=== PATIENT | female | born 1935 | race Two or more races ===

== ENCOUNTER 2020-10-25 08:04 | Inpatient (IN) | payer OTHER ==
[2020-10-25] MEDS ORDERED: ACETAMINOPHEN 1000 MG/100 ML VIAL (NON FORMULARY) IVPB ONE (09:02)
[2020-10-25] MEDS ORDERED: ACETAMINOPHEN INJECTION 100 ML IVPB ONE (09:12)
[2020-10-25] MEDS ORDERED: LACTATED RINGERS SOLUTION 1000 ML INFUS.BAG IV ONE (09:15)
[2020-10-25] MEDS ORDERED: PIPERACILLIN/TAZOB 4.5 GM 4.5 GM in DEXTROSE 5%-WATER 100 ML IVPB ONE (09:23)
[2020-10-25] MEDS ORDERED: VANCOMYCIN 1 GM in D5W (PRE-DOCKED) 1,000 MG/250 ML IVPB ONE (09:24)
[2020-10-25 09:35] LABS: BASO % 0.3 % (0-2.0); EOS % 3.1 % (0-4.5); HEMATOCRIT 26.4 % (32.4-45.2); HEMOGLOBIN 8.6 GM/dL (10.7-15.3); LYMPH % 40.7 % (8-40); MCH 27.5 pg (25.7-33.7); MCHC 32.8 g/dl (32.0-36.0); MEAN PLT VOLUME 8.5 fl (7.5-11.1); MONO % 5.7 % (3.8-10.2); NEUT % 50.2 % (42.8-82.8); PLATELET COUNT 285 K/MM3 (134-434); RBC 3.14 M/mm3 (3.60-5.2); RDW 17.6 % (11.6-15.6); WHITE BLOOD COUNT 7.3 K/mm3 (4.0-10.0)
[2020-10-25 09:38] LABS: INR 0.99 (0.83-1.09)
[2020-10-25] MEDS ORDERED: PIPERACILLIN/TAZOB 4.5 GM 4.5 GM/100 ML BAG IVPB ONE ×2 (09:38→16:26)
[2020-10-25 09:40] LABS: ACTIVATED PTT 25.3 SECONDS (25.2-36.5)
[2020-10-25 09:45] LABS: EPI CELLS >36 /uL (0-25.1); HYALINE CASTS 1 /uL (0-3.1); URINE APPEARANCE CLEAR; URINE BACTERIA 195 /uL (0-1359); URINE BILIRUBIN NEGATIVE (NEGATIVE); URINE COLOR YELLOW; URINE GLUCOSE (UA) NEGATIVE (NEGATIVE); URINE KETONE NEGATIVE (NEGATIVE); URINE LEUK ESTERASE 1+ (NEGATIVE); URINE NITRITE NEGATIVE (NEGATIVE); URINE PROTEIN NEGATIVE (NEGATIVE); URINE RBC 8 /uL (0-23.9); URINE WBC 58 /uL (0-25.8)
[2020-10-25 09:53] LABS: POTASSIUM 5.3 mmol/L (3.5-5.1)
[2020-10-25 09:54] LABS: CALCIUM 8.7 mg/dL (8.5-10.1)
[2020-10-25 09:55] LABS: ALBUMIN 2.3 g/dl (3.4-5.0); BLOOD UREA NITROGEN 29.6 mg/dL (7-18)
[2020-10-25 09:58] LABS: BILIRUBIN,DIRECT 0.1 mg/dL (0.0-0.2); CREATININE 0.6 mg/dL (0.55-1.3)
[2020-10-25 09:59] LABS: BILIRUBIN,TOTAL 1.1 mg/dL (0.2-1)
[2020-10-25 10:00] LABS: TOT PROT 7.3 g/dl (6.4-8.2)
[2020-10-25] MEDS ORDERED: VANCOMYCIN 1 GRAM (PRE-DOCKED) 1,000 MG/250 ML BAG IVPB ONE (10:39)
[2020-10-25] MEDS: PIPERACILLIN/TAZOB 4.5 GM 4.5 GM in DEXTROSE 5%-WATER 100 ML IVPB SCH ×2 (16:30→22:54)
[2020-10-25] MEDS ORDERED: DEXTROSE 5%-WATER 100 ML IVPB ONE (22:43)
[2020-10-25] MEDS ORDERED: PIPERACILLIN/TAZOBACTAM 4.5 GM VIAL IVPB ONE (22:43)
[2020-10-25] MEDS: ATORVASTATIN CA 20 MG TABLET (FP) GT SCH (22:56)
[2020-10-26] MEDS: ASCORBIC ACID 500 MG/5 ML UNIT DOSE CUP GT SCH ×3 (01:21→23:27)
[2020-10-26] MEDS: CHLORHEXIDINE GLUCONATE 0.12% 15ML CUP MM SCH ×3 (01:21→23:14)
[2020-10-26] MEDS ORDERED: DEXTROSE 5%-WATER 100 ML IVPB ONE ×2 (02:49→08:27)
[2020-10-26] MEDS ORDERED: PIPERACILLIN/TAZOBACTAM 4.5 GM VIAL IVPB ONE ×2 (02:49→08:27)
[2020-10-26] MEDS: PIPERACILLIN/TAZOB 4.5 GM 4.5 GM in DEXTROSE 5%-WATER 100 ML IVPB SCH ×3 (03:17→17:58)
[2020-10-26 08:23] LABS: POTASSIUM 3.8 mmol/L (3.5-5.1)
[2020-10-26 08:24] LABS: HEMOGLOBIN 8.3 GM/dL (10.7-15.3); MCH 27.8 pg (25.7-33.7); MCHC 32.9 g/dl (32.0-36.0); MEAN CELL VOLUME 84.3 fl (80-96); MEAN PLT VOLUME 8.3 fl (7.5-11.1); PLATELET COUNT 240 K/MM3 (134-434); RBC 2.97 M/mm3 (3.60-5.2); RDW 17.6 % (11.6-15.6); WHITE BLOOD COUNT 6.2 K/mm3 (4.0-10.0)
[2020-10-26 08:29] LABS: ALBUMIN 2.1 g/dl (3.4-5.0); CALCIUM 8.2 mg/dL (8.5-10.1); MAGNESIUM 1.9 mg/dL (1.8-2.4)
[2020-10-26 08:32] LABS: CREATININE 0.7 mg/dL (0.55-1.3); TOT PROT 6.4 g/dl (6.4-8.2)
[2020-10-26 08:38] LABS: INR 1.07 (0.83-1.09); PROTHROMBIN TIME (PATIENT) 13.1 SEC (9.7-13.0)
[2020-10-26 08:39] LABS: ACTIVATED PTT 25.7 SECONDS (25.2-36.5)
[2020-10-26] MEDS ORDERED: PT OWN MED DRAWER 7, Y5N ONE ×2 (09:22→22:57)
[2020-10-26] MEDS: FAMOTIDINE 20 MG TABLET PEG SCH (09:27)
[2020-10-26] MEDS: amLODIPine BESYLATE 5 MG TABLET (FP) GT SCH (09:27)
[2020-10-26] MEDS ORDERED: [UNRECOGNIZED DRUG - MIXTURE] TP SCH (10:00)
[2020-10-26] MEDS ORDERED: PIPERACILLIN/TAZOB 3.375 GM 3.375 GM in DEXTROSE 5%-WATER - 50 ML IVPB ONE (11:08)
[2020-10-26] MEDS ORDERED: cefTRIAXone SODIUM 1 GM VIAL ONE (12:57)
[2020-10-26] MEDS ORDERED: DEXTROSE 5%-WATER - 50 ML IVPB ONE (12:58)
[2020-10-26] MEDS: INSULIN SLIDING SCALE (NOVOLOG) 1 VIAL SQ SCH ×3 (13:01→23:11)
[2020-10-26] MEDS: MULTIVIT-MINERALS ORAL LIQUID GT SCH (13:02)
[2020-10-26] MEDS: DEXAMETHASONE SOD PHOSPHATE 4 MG/1 ML VIAL IVPUSH SCH (13:02)
[2020-10-26] MEDS: ENOXAPARIN NA (PORCINE) 60 MG/0.6 ML DISP.SYRIN SQ SCH ×2 (13:03→23:12)
[2020-10-26] MEDS: CEFTRIAXONE 1 GM in DEXTROSE 5%-WATER - 50 ML IVPB SCH (13:03)
[2020-10-26] MEDS ORDERED: REMDESIVIR 200 MG in SODIUM CHLORIDE 210 ML IVPB ONE (17:00)
[2020-10-26] MEDS: ATORVASTATIN CA 20 MG TABLET (FP) GT SCH (23:27)
[2020-10-27] MEDS: INSULIN SLIDING SCALE (NOVOLOG) 1 VIAL SQ SCH ×4 (06:56→21:49)
[2020-10-27 08:31] LABS: POTASSIUM 3.5 mmol/L (3.5-5.1)
[2020-10-27 08:44] LABS: CALCIUM 8.5 mg/dL (8.5-10.1)
[2020-10-27 08:45] LABS: ALBUMIN 2.3 g/dl (3.4-5.0); BLOOD UREA NITROGEN 24.7 mg/dL (7-18); MAGNESIUM 1.9 mg/dL (1.8-2.4)
[2020-10-27 08:48] LABS: BASO % 0.3 % (0-2.0); CREATININE 0.7 mg/dL (0.55-1.3); EOS % 0.1 % (0-4.5); LYMPH % 38.9 % (8-40); MCH 28.3 pg (25.7-33.7); MCHC 33.3 g/dl (32.0-36.0); MEAN CELL VOLUME 84.9 fl (80-96); MEAN PLT VOLUME 8.3 fl (7.5-11.1); NEUT % 54.7 % (42.8-82.8); PHOSPHOROUS 4.9 mg/dL (2.5-4.9); PLATELET COUNT 268 K/MM3 (134-434); RBC 2.83 M/mm3 (3.60-5.2); RDW 17.9 % (11.6-15.6); WHITE BLOOD COUNT 6.9 K/mm3 (4.0-10.0)
[2020-10-27 08:49] LABS: BILIRUBIN,TOTAL 0.6 mg/dL (0.2-1); TOT PROT 6.9 g/dl (6.4-8.2)
[2020-10-27] MEDS ORDERED: cefTRIAXone SODIUM 1 GM VIAL ONE (09:52)
[2020-10-27] MEDS ORDERED: DEXTROSE 5%-WATER - 50 ML IVPB ONE (09:52)
[2020-10-27] MEDS: CEFTRIAXONE 1 GM in DEXTROSE 5%-WATER - 50 ML IVPB SCH (09:59)
[2020-10-27] MEDS: ASCORBIC ACID 500 MG/5 ML UNIT DOSE CUP GT SCH ×2 (09:59→21:49)
[2020-10-27] MEDS: FAMOTIDINE 20 MG TABLET PEG SCH (09:59)
[2020-10-27] MEDS: ENOXAPARIN NA (PORCINE) 60 MG/0.6 ML DISP.SYRIN SQ SCH ×2 (10:00→21:50)
[2020-10-27] MEDS: DEXAMETHASONE SOD PHOSPHATE 4 MG/1 ML VIAL IVPUSH SCH (10:01)
[2020-10-27] MEDS: MULTIVIT-MINERALS ORAL LIQUID GT SCH (10:01)
[2020-10-27] MEDS: CHLORHEXIDINE GLUCONATE 0.12% 15ML CUP MM SCH ×2 (10:03→21:50)
[2020-10-27] MEDS: amLODIPine BESYLATE 5 MG TABLET (FP) GT SCH (10:05)
[2020-10-27 11:35] LABS: ERYTHROCYTE SEDIMENTATION RATE 105 mm/hr (0-30)
[2020-10-27 13:09] LABS: ANISOCYTOSIS 0; MACROCYTOSIS 0; PLATELET ESTIMATE NORMAL
[2020-10-27] MEDS: REMDESIVIR 100 MG in SODIUM CHLORIDE 230 ML IVPB SCH (16:59)
[2020-10-27] MEDS ORDERED: PT OWN MED DRAWER 7, Y5N ONE (21:45)
[2020-10-27] MEDS: ATORVASTATIN CA 20 MG TABLET (FP) GT SCH (21:49)
[2020-10-28] MEDS: INSULIN SLIDING SCALE (NOVOLOG) 1 VIAL SQ SCH ×4 (06:48→21:53)
[2020-10-28 09:34] LABS: ALBUMIN 2.2 g/dl (3.4-5.0); CALCIUM 8.1 mg/dL (8.5-10.1)
[2020-10-28 09:36] LABS: BLOOD UREA NITROGEN 23.4 mg/dL (7-18)
[2020-10-28 09:38] LABS: CREATININE 0.7 mg/dL (0.55-1.3)
[2020-10-28 09:40] LABS: BILIRUBIN,TOTAL 0.7 mg/dL (0.2-1); TOT PROT 6.5 g/dl (6.4-8.2)
[2020-10-28 10:08] LABS: BASO % 0.3 % (0-2.0); HEMATOCRIT 22.9 % (32.4-45.2); HEMOGLOBIN 7.6 GM/dL (10.7-15.3); LYMPH % 42.4 % (8-40); MCH 28.5 pg (25.7-33.7); MCHC 33.4 g/dl (32.0-36.0); MEAN CELL VOLUME 85.3 fl (80-96); MONO % 7.3 % (3.8-10.2); PLATELET COUNT 278 K/MM3 (134-434); RBC 2.68 M/mm3 (3.60-5.2); RDW 17.5 % (11.6-15.6); WHITE BLOOD COUNT 6.3 K/mm3 (4.0-10.0)
[2020-10-28] MEDS ORDERED: cefTRIAXone SODIUM 1 GM VIAL ONE (11:11)
[2020-10-28] MEDS ORDERED: DEXTROSE 5%-WATER - 50 ML IVPB ONE (11:11)
[2020-10-28] MEDS: DEXAMETHASONE SOD PHOSPHATE 4 MG/1 ML VIAL IVPUSH SCH (11:16)
[2020-10-28] MEDS: CHLORHEXIDINE GLUCONATE 0.12% 15ML CUP MM SCH ×2 (11:16→21:47)
[2020-10-28] MEDS: ENOXAPARIN NA (PORCINE) 60 MG/0.6 ML DISP.SYRIN SQ SCH ×2 (11:16→21:47)
[2020-10-28] MEDS: amLODIPine BESYLATE 5 MG TABLET (FP) GT SCH (11:17)
[2020-10-28] MEDS: FAMOTIDINE 20 MG TABLET PEG SCH (11:18)
[2020-10-28] MEDS: CEFTRIAXONE 1 GM in DEXTROSE 5%-WATER - 50 ML IVPB SCH (11:19)
[2020-10-28] MEDS ORDERED: PT OWN MED DRAWER 7, Y5N ONE (13:02)
[2020-10-28] MEDS: MULTIVIT-MINERALS ORAL LIQUID GT SCH (13:02)
[2020-10-28] MEDS: ASCORBIC ACID 500 MG/5 ML UNIT DOSE CUP GT SCH ×2 (13:02→21:46)
[2020-10-28] MEDS: REMDESIVIR 100 MG in SODIUM CHLORIDE 230 ML IVPB SCH (17:21)
[2020-10-28] MEDS: ATORVASTATIN CA 20 MG TABLET (FP) GT SCH (21:46)
[2020-10-29] MEDS: INSULIN SLIDING SCALE (NOVOLOG) 1 VIAL SQ SCH ×4 (06:16→21:51)
[2020-10-29] MEDS ORDERED: INSULIN (LEVEMIR) 100 UNITS/ML UNITS SQ ONE (06:51)
[2020-10-29 07:46] LABS: BASO % 0.1 % (0-2.0); EOS % 0.1 % (0-4.5); HEMATOCRIT 23.1 % (32.4-45.2); HEMOGLOBIN 7.9 GM/dL (10.7-15.3); LYMPH % 42.6 % (8-40); MCH 29.2 pg (25.7-33.7); MCHC 34.1 g/dl (32.0-36.0); MEAN CELL VOLUME 85.6 fl (80-96); NEUT % 49.2 % (42.8-82.8); PLATELET COUNT 280 K/MM3 (134-434); RDW 17.7 % (11.6-15.6); WHITE BLOOD COUNT 5.9 K/mm3 (4.0-10.0)
[2020-10-29 07:59] LABS: ALBUMIN 2.2 g/dl (3.4-5.0); BLOOD UREA NITROGEN 24.4 mg/dL (7-18)
[2020-10-29 08:01] LABS: CREATININE 0.6 mg/dL (0.55-1.3)
[2020-10-29 08:02] LABS: TOT PROT 6.4 g/dl (6.4-8.2)
[2020-10-29 08:07] LABS: BILIRUBIN,TOTAL 0.7 mg/dL (0.2-1)
[2020-10-29] MEDS: PATIENT'S OWN MEDICATION (NON-FORMULARY) (Zinc Gluconate [Zinc] 50 MG Tablet) GT SCH ×2 (08:35→08:36)
[2020-10-29] MEDS ORDERED: PT OWN MED DRAWER 7, Y5N ONE ×3 (10:32→21:30)
[2020-10-29] MEDS ORDERED: cefTRIAXone SODIUM 1 GM VIAL ONE (10:33)
[2020-10-29] MEDS ORDERED: DEXTROSE 5%-WATER - 50 ML IVPB ONE (10:33)
[2020-10-29] MEDS: amLODIPine BESYLATE 5 MG TABLET (FP) GT SCH (10:35)
[2020-10-29] MEDS: ENOXAPARIN NA (PORCINE) 60 MG/0.6 ML DISP.SYRIN SQ SCH ×2 (10:35→21:43)
[2020-10-29] MEDS: MULTIVIT-MINERALS ORAL LIQUID GT SCH (10:35)
[2020-10-29] MEDS: ASCORBIC ACID 500 MG/5 ML UNIT DOSE CUP GT SCH ×2 (10:35→21:44)
[2020-10-29] MEDS: FAMOTIDINE 20 MG TABLET PEG SCH (10:35)
[2020-10-29] MEDS: DEXAMETHASONE SOD PHOSPHATE 4 MG/1 ML VIAL IVPUSH SCH (10:35)
[2020-10-29] MEDS: CEFTRIAXONE 1 GM in DEXTROSE 5%-WATER - 50 ML IVPB SCH (10:36)
[2020-10-29] MEDS: KCL 10 MEQ IVPB 10 MEQ/100 ML INFUS.BAG IVPB SCH ×3 (11:48→14:34)
[2020-10-29] MEDS: CHLORHEXIDINE GLUCONATE 0.12% 15ML CUP MM SCH ×3 (14:34→22:30)
[2020-10-29] MEDS: REMDESIVIR 100 MG in SODIUM CHLORIDE 230 ML IVPB SCH (18:39)
[2020-10-29] MEDS: ATORVASTATIN CA 20 MG TABLET (FP) GT SCH (21:43)
[2020-10-30] MEDS: INSULIN SLIDING SCALE (NOVOLOG) 1 VIAL SQ SCH ×4 (06:33→21:12)
[2020-10-30 08:44] LABS: BASO % 0.2 % (0-2.0); EOS % 0.8 % (0-4.5); HEMATOCRIT 22.8 % (32.4-45.2); HEMOGLOBIN 7.8 GM/dL (10.7-15.3); LYMPH % 39.9 % (8-40); MCH 29.9 pg (25.7-33.7); MCHC 34.4 g/dl (32.0-36.0); MEAN PLT VOLUME 7.9 fl (7.5-11.1); MONO % 7.5 % (3.8-10.2); NEUT % 51.6 % (42.8-82.8); PLATELET COUNT 282 K/MM3 (134-434); RBC 2.62 M/mm3 (3.60-5.2); RDW 17.2 % (11.6-15.6); WHITE BLOOD COUNT 8.3 K/mm3 (4.0-10.0)
[2020-10-30 08:57] LABS: POTASSIUM 3.6 mmol/L (3.5-5.1)
[2020-10-30 09:03] LABS: ALBUMIN 2.2 g/dl (3.4-5.0); BLOOD UREA NITROGEN 19.6 mg/dL (7-18); MAGNESIUM 1.9 mg/dL (1.8-2.4)
[2020-10-30 09:06] LABS: CREATININE 0.5 mg/dL (0.55-1.3); PHOSPHOROUS 2.1 mg/dL (2.5-4.9)
[2020-10-30 09:07] LABS: BILIRUBIN,TOTAL 0.2 mg/dL (0.2-1); TOT PROT 6.3 g/dl (6.4-8.2)
[2020-10-30 09:46] LABS: ERYTHROCYTE SEDIMENTATION RATE 87 mm/hr (0-30)
[2020-10-30] MEDS ORDERED: PT OWN MED DRAWER 7, Y5N ONE ×3 (11:39→20:45)
[2020-10-30] MEDS: amLODIPine BESYLATE 5 MG TABLET (FP) GT SCH (11:42)
[2020-10-30] MEDS: FAMOTIDINE 20 MG TABLET PEG SCH (11:42)
[2020-10-30] MEDS: ENOXAPARIN NA (PORCINE) 60 MG/0.6 ML DISP.SYRIN SQ SCH ×2 (11:42→21:10)
[2020-10-30] MEDS: DEXAMETHASONE SOD PHOSPHATE 4 MG/1 ML VIAL IVPUSH SCH (11:42)
[2020-10-30] MEDS: BACITRACIN 15 GM TUBE TOPICAL OINTMENT TP SCH (11:43)
[2020-10-30] MEDS: ASCORBIC ACID 500 MG/5 ML UNIT DOSE CUP GT SCH ×2 (11:44→21:11)
[2020-10-30] MEDS: MULTIVIT-MINERALS ORAL LIQUID GT SCH (11:45)
[2020-10-30] MEDS: CHLORHEXIDINE GLUCONATE 0.12% 15ML CUP MM SCH ×2 (11:45→21:11)
[2020-10-30 12:36] LABS: ANISOCYTOSIS 1+; MACROCYTOSIS 0; OVALOCYTE 1+; PLATELET ESTIMATE NORMAL
[2020-10-30] MEDS: ZINC SULFATE 220 MG CAPSULE (FP) GT SCH ×2 (13:58→21:14)
[2020-10-30] MEDS: CHOLECALCIFEROL (VIT D3) 1,000 UNIT (25 MCG) TABLET GT SCH (13:58)
[2020-10-30] MEDS: REMDESIVIR 100 MG in SODIUM CHLORIDE 230 ML IVPB SCH (17:43)
[2020-10-30] MEDS: ATORVASTATIN CA 20 MG TABLET (FP) GT SCH (21:12)
[2020-10-31] MEDS: INSULIN SLIDING SCALE (NOVOLOG) 1 VIAL SQ SCH ×4 (06:51→22:37)
[2020-10-31 08:04] LABS: BASO % 0.1 % (0-2.0); EOS % 0.6 % (0-4.5); HEMATOCRIT 21.8 % (32.4-45.2); HEMOGLOBIN 7.7 GM/dL (10.7-15.3); LYMPH % 35.9 % (8-40); MCH 31.3 pg (25.7-33.7); MCHC 35.4 g/dl (32.0-36.0); MEAN CELL VOLUME 88.3 fl (80-96); MEAN PLT VOLUME 7.9 fl (7.5-11.1); MONO % 7.6 % (3.8-10.2); NEUT % 55.8 % (42.8-82.8); PLATELET COUNT 284 K/MM3 (134-434); RBC 2.47 M/mm3 (3.60-5.2); RDW 17.4 % (11.6-15.6); WHITE BLOOD COUNT 9.2 K/mm3 (4.0-10.0)
[2020-10-31 08:13] LABS: POTASSIUM 3.6 mmol/L (3.5-5.1)
[2020-10-31 08:21] LABS: ALBUMIN 2.2 g/dl (3.4-5.0); CALCIUM 7.8 mg/dL (8.5-10.1)
[2020-10-31 08:22] LABS: BLOOD UREA NITROGEN 19.9 mg/dL (7-18)
[2020-10-31 08:24] LABS: PHOSPHOROUS 2.1 mg/dL (2.5-4.9)
[2020-10-31 08:25] LABS: CREATININE 0.5 mg/dL (0.55-1.3)
[2020-10-31 08:26] LABS: BILIRUBIN,TOTAL 0.2 mg/dL (0.2-1)
[2020-10-31] MEDS: BACITRACIN 15 GM TUBE TOPICAL OINTMENT TP SCH (09:30)
[2020-10-31] MEDS: amLODIPine BESYLATE 5 MG TABLET (FP) GT SCH (09:30)
[2020-10-31] MEDS: CHLORHEXIDINE GLUCONATE 0.12% 15ML CUP MM SCH ×2 (09:30→22:15)
[2020-10-31] MEDS: MULTIVIT-MINERALS ORAL LIQUID GT SCH (09:30)
[2020-10-31] MEDS: ZINC SULFATE 220 MG CAPSULE (FP) GT SCH ×2 (09:31→22:15)
[2020-10-31] MEDS: DEXAMETHASONE SOD PHOSPHATE 4 MG/1 ML VIAL IVPUSH SCH (09:31)
[2020-10-31] MEDS: CHOLECALCIFEROL (VIT D3) 1,000 UNIT (25 MCG) TABLET GT SCH (09:31)
[2020-10-31] MEDS: ENOXAPARIN NA (PORCINE) 60 MG/0.6 ML DISP.SYRIN SQ SCH ×2 (09:31→22:15)
[2020-10-31] MEDS: FAMOTIDINE 20 MG TABLET PEG SCH (09:31)
[2020-10-31 09:35] LABS: ANISOCYTOSIS 1+; MACROCYTOSIS 1+; OVALOCYTE 1+; PLATELET ESTIMATE NORMAL
[2020-10-31 10:22] LABS: ERYTHROCYTE SEDIMENTATION RATE 102 mm/hr (0-30)
[2020-10-31] MEDS: ASCORBIC ACID 500 MG/5 ML UNIT DOSE CUP GT SCH ×2 (10:32→22:15)
[2020-10-31] MEDS ORDERED: PT OWN MED DRAWER 7, Y5N ONE ×2 (10:41→22:12)
[2020-10-31] MEDS: PIPERACILLIN/TAZOB 3.375 GM 3.375 GM in DEXTROSE 5%-WATER - 50 ML IVPB SCH (18:16)
[2020-10-31] MEDS: ATORVASTATIN CA 20 MG TABLET (FP) GT SCH (22:15)
[2020-11-01] MEDS: INSULIN SLIDING SCALE (NOVOLOG) 1 VIAL SQ SCH ×4 (06:21→22:13)
[2020-11-01 08:57] LABS: BASO % 0.1 % (0-2.0); EOS % 1.1 % (0-4.5); HEMATOCRIT 23.8 % (32.4-45.2); HEMOGLOBIN 8.1 GM/dL (10.7-15.3); LYMPH % 32.8 % (8-40); MCHC 34.3 g/dl (32.0-36.0); MEAN CELL VOLUME 87.7 fl (80-96); MONO % 6.1 % (3.8-10.2); NEUT % 59.9 % (42.8-82.8); PLATELET COUNT 294 K/MM3 (134-434); RBC 2.71 M/mm3 (3.60-5.2)
[2020-11-01] MEDS ORDERED: PT OWN MED DRAWER 7, Y5N ONE (09:09)
[2020-11-01 09:14] LABS: CHLORIDE 104 mmol/L (98-107); POTASSIUM 3.7 mmol/L (3.5-5.1); SODIUM 137 mmol/L (136-145)
[2020-11-01] MEDS: CHOLECALCIFEROL (VIT D3) 1,000 UNIT (25 MCG) TABLET GT SCH (09:15)
[2020-11-01] MEDS: amLODIPine BESYLATE 5 MG TABLET (FP) GT SCH (09:16)
[2020-11-01] MEDS: ZINC SULFATE 220 MG CAPSULE (FP) GT SCH ×2 (09:16→22:03)
[2020-11-01] MEDS: BACITRACIN 15 GM TUBE TOPICAL OINTMENT TP SCH (09:16)
[2020-11-01] MEDS: ENOXAPARIN NA (PORCINE) 60 MG/0.6 ML DISP.SYRIN SQ SCH ×2 (09:16→22:03)
[2020-11-01] MEDS: DEXAMETHASONE SOD PHOSPHATE 4 MG/1 ML VIAL IVPUSH SCH (09:16)
[2020-11-01] MEDS: ASCORBIC ACID 500 MG/5 ML UNIT DOSE CUP GT SCH ×2 (09:17→22:04)
[2020-11-01] MEDS: CHLORHEXIDINE GLUCONATE 0.12% 15ML CUP MM SCH ×2 (09:17→22:04)
[2020-11-01] MEDS: FAMOTIDINE 20 MG TABLET PEG SCH (09:17)
[2020-11-01 09:18] LABS: ALBUMIN 2.1 g/dl (3.4-5.0); ANION GAP 5 MMOL/L (8-16); BLOOD UREA NITROGEN 20.5 mg/dL (7-18); CO2 27 mmol/L (21-32); GLUCOSE,RANDOM 102 mg/dL (74-106)
[2020-11-01] MEDS: MULTIVIT-MINERALS ORAL LIQUID GT SCH (09:18)
[2020-11-01 09:20] LABS: CREATININE 0.5 mg/dL (0.55-1.3); SGPT/ALT 28 U/L (13-61)
[2020-11-01 09:21] LABS: PHOSPHOROUS 2.5 mg/dL (2.5-4.9); SGOT/AST 21 U/L (15-37)
[2020-11-01 09:22] LABS: BILIRUBIN,TOTAL 0.3 mg/dL (0.2-1); TOT PROT 5.9 g/dl (6.4-8.2)
[2020-11-01 09:23] LABS: ALK PHOS 60 U/L (45-117)
[2020-11-01 09:30] LABS: LDH 189 U/L (84-246)
[2020-11-01 11:25] LABS: ERYTHROCYTE SEDIMENTATION RATE 64 mm/hr (0-30)
[2020-11-01 12:03] LABS: ANISOCYTOSIS 1+; MACROCYTOSIS 0; PLATELET ESTIMATE NORMAL
[2020-11-01] MEDS: ATORVASTATIN CA 20 MG TABLET (FP) GT SCH (22:03)
[2020-11-02] MEDS ORDERED: INSULIN (NOVOLOG) ASPART 100 UNITS/ML 10ML VIAL ONE (05:57)
[2020-11-02] MEDS: INSULIN SLIDING SCALE (NOVOLOG) 1 VIAL SQ SCH ×4 (06:18→22:30)
[2020-11-02] MEDS ORDERED: PT OWN MED DRAWER 7, Y5N ONE ×2 (09:07→09:22)
[2020-11-02] MEDS: amLODIPine BESYLATE 5 MG TABLET (FP) GT SCH (09:24)
[2020-11-02] MEDS: FAMOTIDINE 20 MG TABLET PEG SCH (09:24)
[2020-11-02] MEDS: ZINC SULFATE 220 MG CAPSULE (FP) GT SCH ×2 (09:24→22:11)
[2020-11-02] MEDS: ENOXAPARIN NA (PORCINE) 60 MG/0.6 ML DISP.SYRIN SQ SCH ×2 (09:24→22:11)
[2020-11-02] MEDS: CHOLECALCIFEROL (VIT D3) 1,000 UNIT (25 MCG) TABLET GT SCH (09:24)
[2020-11-02] MEDS: ASCORBIC ACID 500 MG/5 ML UNIT DOSE CUP GT SCH ×2 (09:25→22:11)
[2020-11-02] MEDS: MULTIVIT-MINERALS ORAL LIQUID GT SCH (09:25)
[2020-11-02] MEDS: CHLORHEXIDINE GLUCONATE 0.12% 15ML CUP MM SCH ×2 (09:25→22:11)
[2020-11-02] MEDS: DEXAMETHASONE SOD PHOSPHATE 4 MG/1 ML VIAL IVPUSH SCH (09:25)
[2020-11-02] MEDS: BACITRACIN 15 GM TUBE TOPICAL OINTMENT TP SCH (09:26)
[2020-11-02 10:28] LABS: BASO % 0.2 % (0-2.0); EOS % 1.5 % (0-4.5); HEMATOCRIT 25.7 % (32.4-45.2); HEMOGLOBIN 8.7 GM/dL (10.7-15.3); MCH 29.6 pg (25.7-33.7); MCHC 33.9 g/dl (32.0-36.0); MEAN CELL VOLUME 87.2 fl (80-96); MEAN PLT VOLUME 8.1 fl (7.5-11.1); MONO % 5.9 % (3.8-10.2); NEUT % 62.4 % (42.8-82.8); PLATELET COUNT 326 K/MM3 (134-434); RBC 2.94 M/mm3 (3.60-5.2); RDW 17.3 % (11.6-15.6); WHITE BLOOD COUNT 12.2 K/mm3 (4.0-10.0)
[2020-11-02 10:41] LABS: CHLORIDE 105 mmol/L (98-107); POTASSIUM 3.8 mmol/L (3.5-5.1); SODIUM 139 mmol/L (136-145)
[2020-11-02 10:45] LABS: ALBUMIN 2.4 g/dl (3.4-5.0); BLOOD UREA NITROGEN 20.1 mg/dL (7-18); CALCIUM 8.3 mg/dL (8.5-10.1)
[2020-11-02 10:46] LABS: ANION GAP 7 MMOL/L (8-16); CO2 28 mmol/L (21-32); GLUCOSE,RANDOM 99 mg/dL (74-106); MAGNESIUM 1.9 mg/dL (1.8-2.4)
[2020-11-02 10:49] LABS: CREATININE 0.5 mg/dL (0.55-1.3); PHOSPHOROUS 2.6 mg/dL (2.5-4.9); SGOT/AST 20 U/L (15-37)
[2020-11-02 10:50] LABS: BILIRUBIN,TOTAL 0.3 mg/dL (0.2-1); SGPT/ALT 29 U/L (13-61)
[2020-11-02 10:51] LABS: ALK PHOS 69 U/L (45-117); LDH 214 U/L (84-246)
[2020-11-02 10:52] LABS: TOT PROT 6.4 g/dl (6.4-8.2)
[2020-11-02 11:22] LABS: ERYTHROCYTE SEDIMENTATION RATE 79 mm/hr (0-30)
[2020-11-02 12:17] LABS: ANISOCYTOSIS 2+
[2020-11-02] MEDS: ATORVASTATIN CA 20 MG TABLET (FP) GT SCH (22:11)
[2020-11-03] MEDS: INSULIN SLIDING SCALE (NOVOLOG) 1 VIAL SQ SCH ×4 (06:25→22:15)
[2020-11-03] MEDS ORDERED: PT OWN MED DRAWER 7, Y5N ONE ×2 (08:52→20:51)
[2020-11-03] MEDS: DEXAMETHASONE SOD PHOSPHATE 4 MG/1 ML VIAL IVPUSH SCH (09:00)
[2020-11-03] MEDS: CHLORHEXIDINE GLUCONATE 0.12% 15ML CUP MM SCH ×2 (09:01→22:18)
[2020-11-03] MEDS: ZINC SULFATE 220 MG CAPSULE (FP) GT SCH ×2 (09:01→22:17)
[2020-11-03] MEDS: amLODIPine BESYLATE 5 MG TABLET (FP) GT SCH (09:01)
[2020-11-03] MEDS: FAMOTIDINE 20 MG TABLET PEG SCH (09:01)
[2020-11-03] MEDS: ENOXAPARIN NA (PORCINE) 60 MG/0.6 ML DISP.SYRIN SQ SCH ×2 (09:01→22:18)
[2020-11-03] MEDS: CHOLECALCIFEROL (VIT D3) 1,000 UNIT (25 MCG) TABLET GT SCH (09:01)
[2020-11-03] MEDS: MULTIVIT-MINERALS ORAL LIQUID GT SCH (09:01)
[2020-11-03] MEDS: ASCORBIC ACID 500 MG/5 ML UNIT DOSE CUP GT SCH ×2 (09:02→22:19)
[2020-11-03] MEDS: BACITRACIN 15 GM TUBE TOPICAL OINTMENT TP SCH (09:04)
[2020-11-03] MEDS ORDERED: INSULIN (NOVOLOG) ASPART 100 UNITS/ML 10ML VIAL ONE (11:11)
[2020-11-03] MEDS: ATORVASTATIN CA 20 MG TABLET (FP) GT SCH (22:17)
[2020-11-04] MEDS: INSULIN SLIDING SCALE (NOVOLOG) 1 VIAL SQ SCH ×4 (06:23→21:54)
[2020-11-04] MEDS: DEXAMETHASONE SOD PHOSPHATE 4 MG/1 ML VIAL IVPUSH SCH (11:19)
[2020-11-04] MEDS: MULTIVIT-MINERALS ORAL LIQUID GT SCH (11:20)
[2020-11-04] MEDS: FAMOTIDINE 20 MG TABLET PEG SCH (11:20)
[2020-11-04] MEDS: CHOLECALCIFEROL (VIT D3) 1,000 UNIT (25 MCG) TABLET GT SCH (11:20)
[2020-11-04] MEDS: amLODIPine BESYLATE 5 MG TABLET (FP) GT SCH (11:20)
[2020-11-04] MEDS: ENOXAPARIN NA (PORCINE) 60 MG/0.6 ML DISP.SYRIN SQ SCH ×2 (11:20→21:41)
[2020-11-04] MEDS: ZINC SULFATE 220 MG CAPSULE (FP) GT SCH ×2 (11:20→21:41)
[2020-11-04] MEDS: CHLORHEXIDINE GLUCONATE 0.12% 15ML CUP MM SCH ×2 (11:21→21:43)
[2020-11-04] MEDS: BACITRACIN 15 GM TUBE TOPICAL OINTMENT TP SCH (11:21)
[2020-11-04] MEDS: ASCORBIC ACID 500 MG/5 ML UNIT DOSE CUP GT SCH ×2 (11:21→21:43)
[2020-11-04] MEDS ORDERED: INSULIN (NOVOLOG) ASPART 100 UNITS/ML 10ML VIAL ONE ×2 (16:46→21:51)
[2020-11-04] MEDS ORDERED: PT OWN MED DRAWER 7, Y5N ONE (21:12)
[2020-11-04] MEDS: ATORVASTATIN CA 20 MG TABLET (FP) GT SCH (21:42)
[2020-11-05] MEDS: INSULIN SLIDING SCALE (NOVOLOG) 1 VIAL SQ SCH ×4 (06:11→22:27)
[2020-11-05 08:28] LABS: BASO % 0.3 % (0-2.0); EOS % 0.2 % (0-4.5); HEMATOCRIT 27.8 % (32.4-45.2); HEMOGLOBIN 9.2 GM/dL (10.7-15.3); LYMPH % 27.7 % (8-40); MCH 29.2 pg (25.7-33.7); MCHC 33.2 g/dl (32.0-36.0); MEAN CELL VOLUME 88.1 fl (80-96); MEAN PLT VOLUME 8.4 fl (7.5-11.1); MONO % 6.3 % (3.8-10.2); NEUT % 65.5 % (42.8-82.8); PLATELET COUNT 268 K/MM3 (134-434); RBC 3.15 M/mm3 (3.60-5.2); RDW 18.4 % (11.6-15.6); WHITE BLOOD COUNT 11.2 K/mm3 (4.0-10.0)
[2020-11-05 08:47] LABS: POTASSIUM 4.2 mmol/L (3.5-5.1)
[2020-11-05 08:53] LABS: CALCIUM 8.3 mg/dL (8.5-10.1)
[2020-11-05 08:54] LABS: ALBUMIN 2.4 g/dl (3.4-5.0); BLOOD UREA NITROGEN 25.3 mg/dL (7-18)
[2020-11-05 08:57] LABS: CREATININE 0.5 mg/dL (0.55-1.3)
[2020-11-05 08:59] LABS: BILIRUBIN,TOTAL 0.3 mg/dL (0.2-1); TOT PROT 6.4 g/dl (6.4-8.2)
[2020-11-05] MEDS ORDERED: PT OWN MED DRAWER 7, Y5N ONE ×4 (11:13→23:51)
[2020-11-05] MEDS: ENOXAPARIN NA (PORCINE) 60 MG/0.6 ML DISP.SYRIN SQ SCH ×2 (11:16→22:28)
[2020-11-05] MEDS: CHOLECALCIFEROL (VIT D3) 1,000 UNIT (25 MCG) TABLET GT SCH (11:16)
[2020-11-05] MEDS: FAMOTIDINE 20 MG TABLET PEG SCH (11:16)
[2020-11-05] MEDS: amLODIPine BESYLATE 5 MG TABLET (FP) GT SCH (11:16)
[2020-11-05] MEDS: ZINC SULFATE 220 MG CAPSULE (FP) GT SCH ×2 (11:16→22:28)
[2020-11-05] MEDS: MULTIVIT-MINERALS ORAL LIQUID GT SCH (11:17)
[2020-11-05] MEDS: CHLORHEXIDINE GLUCONATE 0.12% 15ML CUP MM SCH ×3 (11:17→22:53)
[2020-11-05] MEDS: ASCORBIC ACID 500 MG/5 ML UNIT DOSE CUP GT SCH ×2 (11:17→22:28)
[2020-11-05 12:00] LABS: ANISOCYTOSIS 2+
[2020-11-05] MEDS: BACITRACIN 15 GM TUBE TOPICAL OINTMENT TP SCH (17:35)
[2020-11-05] MEDS ORDERED: INSULIN (NOVOLOG) ASPART 100 UNITS/ML 10ML VIAL ONE (22:24)
[2020-11-05] MEDS: ATORVASTATIN CA 20 MG TABLET (FP) GT SCH (22:28)
[2020-11-06] MEDS: INSULIN SLIDING SCALE (NOVOLOG) 1 VIAL SQ SCH ×4 (06:40→23:09)
[2020-11-06 08:55] LABS: BASO % 0.5 % (0-2.0); EOS % 1.7 % (0-4.5); HEMATOCRIT 27.3 % (32.4-45.2); HEMOGLOBIN 9.1 GM/dL (10.7-15.3); LYMPH % 30.7 % (8-40); MCH 29.3 pg (25.7-33.7); MCHC 33.5 g/dl (32.0-36.0); MEAN CELL VOLUME 87.5 fl (80-96); MEAN PLT VOLUME 8.2 fl (7.5-11.1); MONO % 7.1 % (3.8-10.2); PLATELET COUNT 280 K/MM3 (134-434); RBC 3.12 M/mm3 (3.60-5.2); RDW 18.8 % (11.6-15.6); WHITE BLOOD COUNT 10.5 K/mm3 (4.0-10.0)
[2020-11-06 09:09] LABS: CHLORIDE 104 mmol/L (98-107); POTASSIUM 4.2 mmol/L (3.5-5.1); SODIUM 140 mmol/L (136-145)
[2020-11-06 09:22] LABS: ALBUMIN 2.5 g/dl (3.4-5.0); BLOOD UREA NITROGEN 23.1 mg/dL (7-18); CALCIUM 8.4 mg/dL (8.5-10.1)
[2020-11-06 09:23] LABS: ANION GAP 7 MMOL/L (8-16); CO2 29 mmol/L (21-32); GLUCOSE,RANDOM 100 mg/dL (74-106)
[2020-11-06 09:25] LABS: CREATININE 0.5 mg/dL (0.55-1.3); SGOT/AST 19 U/L (15-37); SGPT/ALT 27 U/L (13-61)
[2020-11-06 09:26] LABS: PHOSPHOROUS 3.7 mg/dL (2.5-4.9)
[2020-11-06 09:27] LABS: BILIRUBIN,TOTAL 0.4 mg/dL (0.2-1); LDH 189 U/L (84-246); TOT PROT 6.3 g/dl (6.4-8.2)
[2020-11-06 09:28] LABS: ALK PHOS 69 U/L (45-117)
[2020-11-06] MEDS: BACITRACIN 15 GM TUBE TOPICAL OINTMENT TP SCH (09:54)
[2020-11-06] MEDS: ASCORBIC ACID 500 MG/5 ML UNIT DOSE CUP GT SCH ×2 (09:55→23:10)
[2020-11-06] MEDS: MULTIVIT-MINERALS ORAL LIQUID GT SCH (09:55)
[2020-11-06] MEDS: CHLORHEXIDINE GLUCONATE 0.12% 15ML CUP MM SCH ×2 (09:56→23:10)
[2020-11-06] MEDS: ENOXAPARIN NA (PORCINE) 60 MG/0.6 ML DISP.SYRIN SQ SCH ×2 (10:04→23:09)
[2020-11-06] MEDS: amLODIPine BESYLATE 5 MG TABLET (FP) GT SCH (10:05)
[2020-11-06] MEDS: ZINC SULFATE 220 MG CAPSULE (FP) GT SCH ×2 (10:05→23:09)
[2020-11-06] MEDS: CHOLECALCIFEROL (VIT D3) 1,000 UNIT (25 MCG) TABLET GT SCH (10:07)
[2020-11-06] MEDS: FAMOTIDINE 20 MG TABLET PEG SCH (10:08)
[2020-11-06 10:35] LABS: ERYTHROCYTE SEDIMENTATION RATE 53 mm/hr (0-30)
[2020-11-06 13:26] LABS: PLATELET ESTIMATE NORMAL
[2020-11-06] MEDS ORDERED: PT OWN MED DRAWER 7, Y5N ONE (22:59)
[2020-11-06] MEDS: ATORVASTATIN CA 20 MG TABLET (FP) GT SCH (23:09)
[2020-11-07] MEDS: INSULIN SLIDING SCALE (NOVOLOG) 1 VIAL SQ SCH ×4 (06:32→22:01)
[2020-11-07 08:54] LABS: BASO % 0.3 % (0-2.0); EOS % 3.7 % (0-4.5); HEMATOCRIT 26.2 % (32.4-45.2); HEMOGLOBIN 8.8 GM/dL (10.7-15.3); LYMPH % 25.6 % (8-40); MCH 29.5 pg (25.7-33.7); MCHC 33.7 g/dl (32.0-36.0); MEAN CELL VOLUME 87.7 fl (80-96); MEAN PLT VOLUME 7.9 fl (7.5-11.1); MONO % 8.1 % (3.8-10.2); NEUT % 62.3 % (42.8-82.8); PLATELET COUNT 243 K/MM3 (134-434); RBC 2.99 M/mm3 (3.60-5.2); RDW 18.6 % (11.6-15.6); WHITE BLOOD COUNT 8.5 K/mm3 (4.0-10.0)
[2020-11-07 08:55] LABS: POTASSIUM 4.2 mmol/L (3.5-5.1)
[2020-11-07 09:01] LABS: ALBUMIN 2.4 g/dl (3.4-5.0); CALCIUM 8.6 mg/dL (8.5-10.1)
[2020-11-07 09:02] LABS: BLOOD UREA NITROGEN 21.9 mg/dL (7-18); MAGNESIUM 2.1 mg/dL (1.8-2.4)
[2020-11-07 09:04] LABS: CREATININE 0.5 mg/dL (0.55-1.3)
[2020-11-07 09:05] LABS: BILIRUBIN,TOTAL 0.7 mg/dL (0.2-1); PHOSPHOROUS 3.7 mg/dL (2.5-4.9)
[2020-11-07] MEDS ORDERED: PT OWN MED DRAWER 7, Y5N ONE ×2 (09:23→21:08)
[2020-11-07] MEDS: ZINC SULFATE 220 MG CAPSULE (FP) GT SCH ×2 (09:28→21:26)
[2020-11-07] MEDS: amLODIPine BESYLATE 5 MG TABLET (FP) GT SCH (09:28)
[2020-11-07] MEDS: CHOLECALCIFEROL (VIT D3) 1,000 UNIT (25 MCG) TABLET GT SCH (09:28)
[2020-11-07] MEDS: ENOXAPARIN NA (PORCINE) 60 MG/0.6 ML DISP.SYRIN SQ SCH ×2 (09:28→21:26)
[2020-11-07] MEDS: ASCORBIC ACID 500 MG/5 ML UNIT DOSE CUP GT SCH ×2 (09:29→21:28)
[2020-11-07] MEDS: MULTIVIT-MINERALS ORAL LIQUID GT SCH (09:30)
[2020-11-07] MEDS: CHLORHEXIDINE GLUCONATE 0.12% 15ML CUP MM SCH ×2 (09:30→21:27)
[2020-11-07] MEDS: FAMOTIDINE 20 MG TABLET PEG SCH (09:31)
[2020-11-07] MEDS: BACITRACIN 15 GM TUBE TOPICAL OINTMENT TP SCH (09:31)
[2020-11-07] MEDS: ATORVASTATIN CA 20 MG TABLET (FP) GT SCH (21:26)
[2020-11-08] MEDS: INSULIN SLIDING SCALE (NOVOLOG) 1 VIAL SQ SCH ×4 (06:31→21:42)
[2020-11-08] MEDS ORDERED: PT OWN MED DRAWER 7, Y5N ONE ×2 (09:57→21:33)
[2020-11-08] MEDS: CHOLECALCIFEROL (VIT D3) 1,000 UNIT (25 MCG) TABLET GT SCH (10:11)
[2020-11-08] MEDS: FAMOTIDINE 20 MG TABLET PEG SCH (10:11)
[2020-11-08] MEDS: ZINC SULFATE 220 MG CAPSULE (FP) GT SCH ×2 (10:11→21:31)
[2020-11-08] MEDS: ENOXAPARIN NA (PORCINE) 60 MG/0.6 ML DISP.SYRIN SQ SCH (10:11)
[2020-11-08] MEDS: amLODIPine BESYLATE 5 MG TABLET (FP) GT SCH (10:11)
[2020-11-08] MEDS: CHLORHEXIDINE GLUCONATE 0.12% 15ML CUP MM SCH ×2 (10:12→21:32)
[2020-11-08] MEDS: MULTIVIT-MINERALS ORAL LIQUID GT SCH (10:12)
[2020-11-08] MEDS: ASCORBIC ACID 500 MG/5 ML UNIT DOSE CUP GT SCH ×2 (10:12→21:31)
[2020-11-08] MEDS: BACITRACIN 15 GM TUBE TOPICAL OINTMENT TP SCH (10:13)
[2020-11-08] MEDS ORDERED: INSULIN (NOVOLOG) ASPART 100 UNITS/ML 10ML VIAL ONE (20:31)
[2020-11-08] MEDS: ATORVASTATIN CA 20 MG TABLET (FP) GT SCH (21:31)
[2020-11-09] MEDS: INSULIN SLIDING SCALE (NOVOLOG) 1 VIAL SQ SCH ×4 (06:24→21:42)
[2020-11-09 09:38] LABS: BASO % 0.8 % (0-2.0); EOS % 3.8 % (0-4.5); LYMPH % 21.4 % (8-40); MCH 29.1 pg (25.7-33.7); MCHC 33.4 g/dl (32.0-36.0); MEAN PLT VOLUME 8.7 fl (7.5-11.1); MONO % 5.7 % (3.8-10.2); NEUT % 68.3 % (42.8-82.8); PLATELET COUNT 251 K/MM3 (134-434); RDW 18.4 % (11.6-15.6)
[2020-11-09 10:03] LABS: ALBUMIN 2.4 g/dl (3.4-5.0); BLOOD UREA NITROGEN 20.5 mg/dL (7-18); CALCIUM 8.3 mg/dL (8.5-10.1)
[2020-11-09 10:07] LABS: CREATININE 0.5 mg/dL (0.55-1.3); PHOSPHOROUS 3.6 mg/dL (2.5-4.9)
[2020-11-09 10:08] LABS: BILIRUBIN,TOTAL 0.3 mg/dL (0.2-1)
[2020-11-09] MEDS ORDERED: PT OWN MED DRAWER 7, Y5N ONE ×2 (10:55→20:42)
[2020-11-09] MEDS: BACITRACIN 15 GM TUBE TOPICAL OINTMENT TP SCH (10:56)
[2020-11-09] MEDS: CHLORHEXIDINE GLUCONATE 0.12% 15ML CUP MM SCH ×2 (10:56→21:24)
[2020-11-09] MEDS: amLODIPine BESYLATE 5 MG TABLET (FP) GT SCH (10:57)
[2020-11-09] MEDS: FAMOTIDINE 20 MG TABLET PEG SCH (10:57)
[2020-11-09] MEDS: ZINC SULFATE 220 MG CAPSULE (FP) GT SCH ×2 (10:57→21:23)
[2020-11-09] MEDS: ASCORBIC ACID 500 MG/5 ML UNIT DOSE CUP GT SCH ×2 (10:57→21:24)
[2020-11-09] MEDS: MULTIVIT-MINERALS ORAL LIQUID GT SCH (10:57)
[2020-11-09] MEDS: CHOLECALCIFEROL (VIT D3) 1,000 UNIT (25 MCG) TABLET GT SCH (10:57)
[2020-11-09] MEDS: ATORVASTATIN CA 20 MG TABLET (FP) GT SCH (21:23)
[2020-11-10] MEDS: INSULIN SLIDING SCALE (NOVOLOG) 1 VIAL SQ SCH ×4 (06:31→21:17)
[2020-11-10 08:15] LABS: BASO % 0.5 % (0-2.0); EOS % 4.9 % (0-4.5); HEMATOCRIT 27.7 % (32.4-45.2); HEMOGLOBIN 9.4 GM/dL (10.7-15.3); LYMPH % 23.6 % (8-40); MCH 29.4 pg (25.7-33.7); MEAN CELL VOLUME 86.4 fl (80-96); MONO % 7.3 % (3.8-10.2); NEUT % 63.7 % (42.8-82.8); PLATELET COUNT 234 K/MM3 (134-434); RDW 18.2 % (11.6-15.6)
[2020-11-10 08:24] LABS: POTASSIUM 4.1 mmol/L (3.5-5.1)
[2020-11-10 08:29] LABS: ALBUMIN 2.4 g/dl (3.4-5.0)
[2020-11-10 08:30] LABS: BLOOD UREA NITROGEN 22.5 mg/dL (7-18); CALCIUM 8.2 mg/dL (8.5-10.1)
[2020-11-10 08:33] LABS: CREATININE 0.6 mg/dL (0.55-1.3); PHOSPHOROUS 3.8 mg/dL (2.5-4.9)
[2020-11-10 08:34] LABS: BILIRUBIN,TOTAL 0.5 mg/dL (0.2-1); TOT PROT 6.2 g/dl (6.4-8.2)
[2020-11-10] MEDS: ZINC SULFATE 220 MG CAPSULE (FP) GT SCH ×2 (10:37→21:15)
[2020-11-10] MEDS: amLODIPine BESYLATE 5 MG TABLET (FP) GT SCH (10:37)
[2020-11-10] MEDS: FAMOTIDINE 20 MG TABLET PEG SCH (10:37)
[2020-11-10] MEDS: CHOLECALCIFEROL (VIT D3) 1,000 UNIT (25 MCG) TABLET GT SCH (10:37)
[2020-11-10] MEDS: MULTIVIT-MINERALS ORAL LIQUID GT SCH (10:38)
[2020-11-10] MEDS: ASCORBIC ACID 500 MG/5 ML UNIT DOSE CUP GT SCH ×2 (10:38→21:15)
[2020-11-10] MEDS: BACITRACIN 15 GM TUBE TOPICAL OINTMENT TP SCH (10:38)
[2020-11-10] MEDS: CHLORHEXIDINE GLUCONATE 0.12% 15ML CUP MM SCH ×2 (10:38→21:15)
[2020-11-10] MEDS ORDERED: INSULIN (NOVOLOG) ASPART 100 UNITS/ML 10ML VIAL ONE (11:32)
[2020-11-10] MEDS: ATORVASTATIN CA 20 MG TABLET (FP) GT SCH (21:14)
[2020-11-11] MEDS: INSULIN SLIDING SCALE (NOVOLOG) 1 VIAL SQ SCH ×4 (06:03→22:20)
[2020-11-11 09:25] LABS: BASO % 0.8 % (0-2.0); EOS % 4.8 % (0-4.5); HEMATOCRIT 28.1 % (32.4-45.2); HEMOGLOBIN 9.2 GM/dL (10.7-15.3); LYMPH % 25.2 % (8-40); MCH 28.5 pg (25.7-33.7); MCHC 32.7 g/dl (32.0-36.0); MEAN CELL VOLUME 87.2 fl (80-96); MEAN PLT VOLUME 8.4 fl (7.5-11.1); MONO % 6.7 % (3.8-10.2); NEUT % 62.5 % (42.8-82.8); PLATELET COUNT 245 K/MM3 (134-434); RBC 3.22 M/mm3 (3.60-5.2); RDW 18.4 % (11.6-15.6); WHITE BLOOD COUNT 8.6 K/mm3 (4.0-10.0)
[2020-11-11 09:31] LABS: POTASSIUM 4.2 mmol/L (3.5-5.1)
[2020-11-11 09:36] LABS: BLOOD UREA NITROGEN 25.1 mg/dL (7-18); CALCIUM 8.5 mg/dL (8.5-10.1)
[2020-11-11 09:39] LABS: CREATININE 0.6 mg/dL (0.55-1.3)
[2020-11-11] MEDS ORDERED: PT OWN MED DRAWER 7, Y5N ONE ×3 (10:25→21:37)
[2020-11-11] MEDS: FAMOTIDINE 20 MG TABLET PEG SCH (10:26)
[2020-11-11] MEDS: ZINC SULFATE 220 MG CAPSULE (FP) GT SCH ×2 (10:26→21:38)
[2020-11-11] MEDS: MULTIVIT-MINERALS ORAL LIQUID GT SCH (10:26)
[2020-11-11] MEDS: amLODIPine BESYLATE 5 MG TABLET (FP) GT SCH (10:26)
[2020-11-11] MEDS: CHOLECALCIFEROL (VIT D3) 1,000 UNIT (25 MCG) TABLET GT SCH (10:26)
[2020-11-11] MEDS: ASCORBIC ACID 500 MG/5 ML UNIT DOSE CUP GT SCH ×2 (10:26→21:38)
[2020-11-11] MEDS: CHLORHEXIDINE GLUCONATE 0.12% 15ML CUP MM SCH ×2 (10:27→21:38)
[2020-11-11] MEDS: BACITRACIN 15 GM TUBE TOPICAL OINTMENT TP SCH (14:36)
[2020-11-11] MEDS: ATORVASTATIN CA 20 MG TABLET (FP) GT SCH (21:38)
[2020-11-12] MEDS: INSULIN SLIDING SCALE (NOVOLOG) 1 VIAL SQ SCH ×4 (06:16→21:38)
[2020-11-12 09:38] LABS: BASO % 0.6 % (0-2.0); EOS % 5.6 % (0-4.5); HEMOGLOBIN 9.1 GM/dL (10.7-15.3); LYMPH % 25.2 % (8-40); MCH 29.3 pg (25.7-33.7); MCHC 33.7 g/dl (32.0-36.0); MEAN PLT VOLUME 8.1 fl (7.5-11.1); MONO % 6.4 % (3.8-10.2); NEUT % 62.2 % (42.8-82.8); PLATELET COUNT 239 K/MM3 (134-434); RBC 3.11 M/mm3 (3.60-5.2); RDW 17.9 % (11.6-15.6); WHITE BLOOD COUNT 8.3 K/mm3 (4.0-10.0)
[2020-11-12] MEDS: FAMOTIDINE 20 MG TABLET PEG SCH (09:44)
[2020-11-12] MEDS: ZINC SULFATE 220 MG CAPSULE (FP) GT SCH ×2 (09:44→22:41)
[2020-11-12] MEDS: amLODIPine BESYLATE 5 MG TABLET (FP) GT SCH (09:44)
[2020-11-12] MEDS: CHOLECALCIFEROL (VIT D3) 1,000 UNIT (25 MCG) TABLET GT SCH (09:44)
[2020-11-12] MEDS: MULTIVIT-MINERALS ORAL LIQUID GT SCH (09:45)
[2020-11-12] MEDS: BACITRACIN 15 GM TUBE TOPICAL OINTMENT TP SCH (09:45)
[2020-11-12] MEDS: ASCORBIC ACID 500 MG/5 ML UNIT DOSE CUP GT SCH ×2 (09:46→23:00)
[2020-11-12 10:16] LABS: CALCIUM 8.4 mg/dL (8.5-10.1)
[2020-11-12 10:17] LABS: BLOOD UREA NITROGEN 24.2 mg/dL (7-18)
[2020-11-12 10:21] LABS: CREATININE 0.6 mg/dL (0.55-1.3)
[2020-11-12] MEDS: CHLORHEXIDINE GLUCONATE 0.12% 15ML CUP MM SCH ×2 (10:33→22:41)
[2020-11-12] MEDS ORDERED: PT OWN MED DRAWER 7, Y5N ONE ×2 (17:19→22:43)
[2020-11-12] MEDS: ATORVASTATIN CA 20 MG TABLET (FP) GT SCH (22:41)
[2020-11-13] MEDS: INSULIN SLIDING SCALE (NOVOLOG) 1 VIAL SQ SCH ×4 (06:10→21:09)
[2020-11-13 09:05] LABS: BASO % 0.5 % (0-2.0); EOS % 5.4 % (0-4.5); HEMATOCRIT 27.4 % (32.4-45.2); HEMOGLOBIN 9.4 GM/dL (10.7-15.3); LYMPH % 23.3 % (8-40); MCH 29.4 pg (25.7-33.7); MCHC 34.2 g/dl (32.0-36.0); MEAN PLT VOLUME 8.2 fl (7.5-11.1); MONO % 6.3 % (3.8-10.2); NEUT % 64.5 % (42.8-82.8); PLATELET COUNT 260 K/MM3 (134-434); RBC 3.19 M/mm3 (3.60-5.2); RDW 17.5 % (11.6-15.6); WHITE BLOOD COUNT 9.1 K/mm3 (4.0-10.0)
[2020-11-13 09:31] LABS: CALCIUM 8.3 mg/dL (8.5-10.1)
[2020-11-13 09:32] LABS: ALBUMIN 2.5 g/dl (3.4-5.0); BLOOD UREA NITROGEN 20.9 mg/dL (7-18); MAGNESIUM 2.2 mg/dL (1.8-2.4)
[2020-11-13 09:35] LABS: CREATININE 0.5 mg/dL (0.55-1.3); PHOSPHOROUS 3.4 mg/dL (2.5-4.9)
[2020-11-13 09:36] LABS: BILIRUBIN,TOTAL 0.4 mg/dL (0.2-1); TOT PROT 6.2 g/dl (6.4-8.2)
[2020-11-13] MEDS ORDERED: PT OWN MED DRAWER 7, Y5N ONE ×3 (10:03→20:14)
[2020-11-13] MEDS: CHOLECALCIFEROL (VIT D3) 1,000 UNIT (25 MCG) TABLET GT SCH (10:05)
[2020-11-13] MEDS: ZINC SULFATE 220 MG CAPSULE (FP) GT SCH ×2 (10:05→21:10)
[2020-11-13] MEDS: BACITRACIN 15 GM TUBE TOPICAL OINTMENT TP SCH (10:05)
[2020-11-13] MEDS: MULTIVIT-MINERALS ORAL LIQUID GT SCH (10:05)
[2020-11-13] MEDS: amLODIPine BESYLATE 5 MG TABLET (FP) GT SCH (10:05)
[2020-11-13] MEDS: CHLORHEXIDINE GLUCONATE 0.12% 15ML CUP MM SCH ×2 (10:05→21:10)
[2020-11-13] MEDS: FAMOTIDINE 20 MG TABLET PEG SCH (10:05)
[2020-11-13] MEDS: ASCORBIC ACID 500 MG/5 ML UNIT DOSE CUP GT SCH ×2 (10:06→21:10)
[2020-11-13] MEDS ORDERED: INSULIN (NOVOLOG) ASPART 100 UNITS/ML 10ML VIAL ONE (18:14)
[2020-11-13] MEDS: ATORVASTATIN CA 20 MG TABLET (FP) GT SCH (21:09)
[2020-11-14] MEDS: INSULIN SLIDING SCALE (NOVOLOG) 1 VIAL SQ SCH ×4 (06:16→22:05)
[2020-11-14 08:36] LABS: BASO % 0.7 % (0-2.0); HEMATOCRIT 27.2 % (32.4-45.2); LYMPH % 24.3 % (8-40); MCH 28.8 pg (25.7-33.7); MCHC 33.2 g/dl (32.0-36.0); MEAN CELL VOLUME 86.7 fl (80-96); MEAN PLT VOLUME 8.5 fl (7.5-11.1); MONO % 6.1 % (3.8-10.2); NEUT % 63.9 % (42.8-82.8); PLATELET COUNT 253 K/MM3 (134-434); RBC 3.14 M/mm3 (3.60-5.2); RDW 17.7 % (11.6-15.6); WHITE BLOOD COUNT 9.7 K/mm3 (4.0-10.0)
[2020-11-14 08:54] LABS: POTASSIUM 4.1 mmol/L (3.5-5.1)
[2020-11-14 09:01] LABS: ALBUMIN 2.5 g/dl (3.4-5.0); BLOOD UREA NITROGEN 20.4 mg/dL (7-18); CALCIUM 8.4 mg/dL (8.5-10.1)
[2020-11-14 09:03] LABS: CREATININE 0.5 mg/dL (0.55-1.3); PHOSPHOROUS 3.7 mg/dL (2.5-4.9)
[2020-11-14 09:04] LABS: BILIRUBIN,TOTAL 0.8 mg/dL (0.2-1)
[2020-11-14] MEDS ORDERED: PT OWN MED DRAWER 7, Y5N ONE ×2 (10:09→18:05)
[2020-11-14] MEDS: amLODIPine BESYLATE 5 MG TABLET (FP) GT SCH (10:11)
[2020-11-14] MEDS: MULTIVIT-MINERALS ORAL LIQUID GT SCH (10:11)
[2020-11-14] MEDS: BACITRACIN 15 GM TUBE TOPICAL OINTMENT TP SCH (10:11)
[2020-11-14] MEDS: CHLORHEXIDINE GLUCONATE 0.12% 15ML CUP MM SCH ×2 (10:11→21:47)
[2020-11-14] MEDS: ZINC SULFATE 220 MG CAPSULE (FP) GT SCH ×2 (10:11→21:46)
[2020-11-14] MEDS: FAMOTIDINE 20 MG TABLET PEG SCH (10:11)
[2020-11-14] MEDS: CHOLECALCIFEROL (VIT D3) 1,000 UNIT (25 MCG) TABLET GT SCH (10:11)
[2020-11-14] MEDS: ASCORBIC ACID 500 MG/5 ML UNIT DOSE CUP GT SCH ×2 (10:12→21:48)
[2020-11-14 15:51] VITALS: BMI 23.8
[2020-11-14] MEDS: ATORVASTATIN CA 20 MG TABLET (FP) GT SCH (21:46)
[2020-11-15] MEDS: INSULIN SLIDING SCALE (NOVOLOG) 1 VIAL SQ SCH ×4 (06:47→21:25)
[2020-11-15] MEDS ORDERED: PT OWN MED DRAWER 7, Y5N ONE ×3 (10:22→21:13)
[2020-11-15] MEDS: MULTIVIT-MINERALS ORAL LIQUID GT SCH (10:24)
[2020-11-15] MEDS: ZINC SULFATE 220 MG CAPSULE (FP) GT SCH ×2 (10:25→21:21)
[2020-11-15] MEDS: ASCORBIC ACID 500 MG/5 ML UNIT DOSE CUP GT SCH ×2 (10:25→21:21)
[2020-11-15] MEDS: amLODIPine BESYLATE 5 MG TABLET (FP) GT SCH (10:25)
[2020-11-15] MEDS: CHLORHEXIDINE GLUCONATE 0.12% 15ML CUP MM SCH ×2 (10:26→21:21)
[2020-11-15] MEDS: CHOLECALCIFEROL (VIT D3) 1,000 UNIT (25 MCG) TABLET GT SCH (10:26)
[2020-11-15] MEDS: BACITRACIN 15 GM TUBE TOPICAL OINTMENT TP SCH (10:26)
[2020-11-15] MEDS: FAMOTIDINE 20 MG TABLET PEG SCH (10:26)
[2020-11-15] MEDS ORDERED: INSULIN (NOVOLOG) ASPART 100 UNITS/ML 10ML VIAL ONE (11:25)
[2020-11-15] MEDS: ATORVASTATIN CA 20 MG TABLET (FP) GT SCH (21:21)
[2020-11-16] MEDS: INSULIN SLIDING SCALE (NOVOLOG) 1 VIAL SQ SCH ×4 (06:07→21:17)
[2020-11-16] MEDS ORDERED: PT OWN MED DRAWER 7, Y5N ONE ×3 (09:56→20:24)
[2020-11-16] MEDS: CHOLECALCIFEROL (VIT D3) 1,000 UNIT (25 MCG) TABLET GT SCH (09:58)
[2020-11-16] MEDS: CHLORHEXIDINE GLUCONATE 0.12% 15ML CUP MM SCH ×2 (09:58→21:04)
[2020-11-16] MEDS: FAMOTIDINE 20 MG TABLET PEG SCH (09:58)
[2020-11-16] MEDS: amLODIPine BESYLATE 5 MG TABLET (FP) GT SCH (09:58)
[2020-11-16] MEDS: ASCORBIC ACID 500 MG/5 ML UNIT DOSE CUP GT SCH ×2 (09:58→21:04)
[2020-11-16] MEDS: ZINC SULFATE 220 MG CAPSULE (FP) GT SCH ×2 (09:58→21:04)
[2020-11-16] MEDS: BACITRACIN 15 GM TUBE TOPICAL OINTMENT TP SCH (09:59)
[2020-11-16] MEDS: MULTIVIT-MINERALS ORAL LIQUID GT SCH (09:59)
[2020-11-16] MEDS: MINERAL OIL/PET HY-PHL TOPICAL OINTMENT 454 GM JAR TP SCH (09:59)
[2020-11-16] MEDS: ATORVASTATIN CA 20 MG TABLET (FP) GT SCH (21:04)
[2020-11-16] MEDS ORDERED: INSULIN (NOVOLOG) ASPART 100 UNITS/ML 10ML VIAL ONE (21:06)
[2020-11-17] MEDS: INSULIN SLIDING SCALE (NOVOLOG) 1 VIAL SQ SCH ×4 (06:13→22:26)
[2020-11-17] MEDS: amLODIPine BESYLATE 5 MG TABLET (FP) GT SCH (10:21)
[2020-11-17] MEDS: FAMOTIDINE 20 MG TABLET PEG SCH (10:21)
[2020-11-17] MEDS: ZINC SULFATE 220 MG CAPSULE (FP) GT SCH ×2 (10:21→21:23)
[2020-11-17] MEDS: CHLORHEXIDINE GLUCONATE 0.12% 15ML CUP MM SCH ×2 (10:22→21:22)
[2020-11-17] MEDS: MINERAL OIL/PET HY-PHL TOPICAL OINTMENT 454 GM JAR TP SCH (10:22)
[2020-11-17] MEDS: BACITRACIN 15 GM TUBE TOPICAL OINTMENT TP SCH (10:22)
[2020-11-17] MEDS: CHOLECALCIFEROL (VIT D3) 1,000 UNIT (25 MCG) TABLET GT SCH (10:22)
[2020-11-17] MEDS ORDERED: PT OWN MED DRAWER 7, Y5N ONE (10:23)
[2020-11-17] MEDS: MULTIVIT-MINERALS ORAL LIQUID GT SCH (10:24)
[2020-11-17] MEDS: ASCORBIC ACID 500 MG/5 ML UNIT DOSE CUP GT SCH ×2 (10:24→21:23)
[2020-11-17] MEDS: ATORVASTATIN CA 20 MG TABLET (FP) GT SCH (21:23)
[2020-11-18] MEDS: INSULIN SLIDING SCALE (NOVOLOG) 1 VIAL SQ SCH ×3 (06:05→16:10)
[2020-11-18] MEDS ORDERED: PT OWN MED DRAWER 7, Y5N ONE (10:34)
[2020-11-18] MEDS: amLODIPine BESYLATE 5 MG TABLET (FP) GT SCH (10:38)
[2020-11-18] MEDS: MULTIVIT-MINERALS ORAL LIQUID GT SCH (10:38)
[2020-11-18] MEDS: ZINC SULFATE 220 MG CAPSULE (FP) GT SCH (10:39)
[2020-11-18] MEDS: CHLORHEXIDINE GLUCONATE 0.12% 15ML CUP MM SCH (10:39)
[2020-11-18] MEDS: CHOLECALCIFEROL (VIT D3) 1,000 UNIT (25 MCG) TABLET GT SCH (10:39)
[2020-11-18] MEDS: ASCORBIC ACID 500 MG/5 ML UNIT DOSE CUP GT SCH (10:39)
[2020-11-18] MEDS: MINERAL OIL/PET HY-PHL TOPICAL OINTMENT 454 GM JAR TP SCH (10:40)
[2020-11-18] MEDS: BACITRACIN 15 GM TUBE TOPICAL OINTMENT TP SCH (10:40)
[2020-11-18] MEDS: FAMOTIDINE 20 MG TABLET PEG SCH (10:40)
[2020-11-18 16:17] VITALS: BP 119/67; PULSE 97; TEMP 98.8
== END 2020-11-18 17:24 | DRG 871 ==
LOC: JER 08:04 → JERBED 10:35 → J6S 20:58 → J8W 10-27 23:19
PROC: XW033E5 Introduction of Remdesivir Anti-infective into Peripheral Vein, Percutaneous Approach, New Technology Group 5 (ICD-10-PCS; principal; 2020-10-26)
PROC: XW13325 Transfusion of Convalescent Plasma (Nonautologous) into Peripheral Vein, Percutaneous Approach, New Technology Group 5 (ICD-10-PCS; 2020-10-26)
PROC: 3E0G76Z Introduction of Nutritional Substance into Upper GI, Via Natural or Artificial Opening (ICD-10-PCS; 2020-10-26)
DX: A41.89 Other specified sepsis (principal); J96.01 Acute respiratory failure with hypoxia; U07.1 COVID-19; J12.89 Other viral pneumonia; J15.9 Unspecified bacterial pneumonia; N39.0 Urinary tract infection, site not specified; E78.5 Hyperlipidemia, unspecified; I34.2 Nonrheumatic mitral (valve) stenosis; I35.0 Nonrheumatic aortic (valve) stenosis; E11.9 Type 2 diabetes mellitus without complications; I11.0 Hypertensive heart disease with heart failure; I50.9 Heart failure, unspecified; I44.7 Left bundle-branch block, unspecified; Z93.1 Gastrostomy status; K21.9 Gastro-esophageal reflux disease without esophagitis; Z99.81 Dependence on supplemental oxygen; Z93.0 Tracheostomy status
CPT/HCPCS: 36415; 36430; 71045-TC-FY; 80048; 80053; 81003; 82248; 82728; 82962; 83605; 83615; 83735; 84100; 84484; 85025; 85027; 85379; 85610; 85651; 85730; 86140; 86850; 86900; 86901; 87040; 87070; 87086; 87186; 87205; 87899; 93005; 93010; 97116-GP; 97162-GP; 99291; C9399; C9803; J0131; P9017; U0003

== ENCOUNTER 2021-08-04 15:10 | Inpatient (IN) | payer OTHER ==
[2021-08-04 17:24] LABS: BASO % 1.2 % (0-2.0); EOS % 2.5 % (0-4.5); HEMATOCRIT 35.2 % (32.4-45.2); LYMPH % 33.6 % (8-40); MCH 28.9 pg (25.7-33.7); MCHC 34.1 g/dl (32.0-36.0); MEAN CELL VOLUME 84.8 fl (80-96); MEAN PLT VOLUME 8.4 fl (7.5-11.1); MONO % 6.3 % (3.8-10.2); NEUT % 56.4 % (42.8-82.8); PLATELET COUNT 262 10^3/uL (134-434); RBC 4.16 M/mm3 (3.60-5.2); RDW 13.7 % (11.6-15.6); WHITE BLOOD COUNT 7.9 K/mm3 (4.0-10.0)
[2021-08-04 17:35] LABS: INR 1.03 (0.83-1.09); PROTHROMBIN TIME (PATIENT) 12.7 SEC (9.7-13.0)
[2021-08-04 17:49] LABS: ALBUMIN 3.1 g/dl (3.4-5.0); BLOOD UREA NITROGEN 27.1 mg/dL (7-18); CALCIUM 9.5 mg/dL (8.5-10.1)
[2021-08-04 17:53] LABS: CREATININE 0.8 mg/dL (0.55-1.3)
[2021-08-04 17:54] LABS: BILIRUBIN,TOTAL 0.8 mg/dL (0.2-1); TOT PROT 7.2 g/dl (6.4-8.2)
[2021-08-04] MEDS ORDERED: LACTATED RINGERS SOLUTION 1000 ML INFUS.BAG IV ONE (19:35)
[2021-08-04] MEDS: INSULIN SLIDING SCALE (NOVOLOG) 1 VIAL SQ SCH (22:25)
[2021-08-05 01:22] VITALS: BMI 26.1
[2021-08-05] MEDS ORDERED: DEXTROSE 50%-WATER 25 GM/50 ML DISP.SYRIN ONE (06:35)
[2021-08-05] MEDS ORDERED: DEXTROSE 50%-WATER - 25 GM/50 ML VIAL IVPUSH ONE (06:35)
[2021-08-05] MEDS: DEXTROSE 5%-NORMAL SALINE 1,000 ML IV SCH (06:44)
[2021-08-05] MEDS: INSULIN SLIDING SCALE (NOVOLOG) 1 VIAL SQ SCH ×4 (08:11→21:14)
[2021-08-05 09:03] LABS: BASO % 0.5 % (0-2.0); EOS % 1.8 % (0-4.5); HEMATOCRIT 32.6 % (32.4-45.2); HEMOGLOBIN 11.1 GM/dL (10.7-15.3); LYMPH % 27.8 % (8-40); MCH 29.4 pg (25.7-33.7); MCHC 34.2 g/dl (32.0-36.0); MEAN CELL VOLUME 86.1 fl (80-96); MEAN PLT VOLUME 8.4 fl (7.5-11.1); NEUT % 64.9 % (42.8-82.8); PLATELET COUNT 250 10^3/uL (134-434); RBC 3.79 M/mm3 (3.60-5.2); RDW 13.4 % (11.6-15.6); WHITE BLOOD COUNT 8.7 K/mm3 (4.0-10.0)
[2021-08-05 09:33] LABS: CREATININE 0.9 mg/dL (0.55-1.3)
[2021-08-05] MEDS ORDERED: HEPARIN NA (PORCINE) 5,000 UNITS/ML 1ML VIAL SQ SCH (10:00)
[2021-08-06 06:32] LABS: EPI CELLS 16 /uL (0-25.1); HYALINE CASTS 9 /uL (0-3.1); URINE APPEARANCE TURBID; URINE BACTERIA 5292 /uL (0-1359); URINE BILIRUBIN NEGATIVE (NEGATIVE); URINE COLOR YELLOW; URINE GLUCOSE (UA) NEGATIVE (NEGATIVE); URINE KETONE 1+ (NEGATIVE); URINE LEUK ESTERASE 3+ (NEGATIVE); URINE NITRITE NEGATIVE (NEGATIVE); URINE PROTEIN TRACE (NEGATIVE); URINE RBC 54 /uL (0-23.9); URINE WBC 5096 /uL (0-25.8)
[2021-08-06] MEDS: INSULIN SLIDING SCALE (NOVOLOG) 1 VIAL SQ SCH ×4 (06:35→22:36)
[2021-08-06] MEDS ORDERED: INSULIN (LEVEMIR) 100 UNITS/ML UNITS SQ ONE (08:22)
[2021-08-06] MEDS ORDERED: INSULIN (NOVOLOG) ASPART 100 UNITS/ML 10ML VIAL ONE (08:22)
[2021-08-06] MEDS ORDERED: PT OWN MED DRAWER 7, Y5N ONE (08:23)
[2021-08-06 10:00] LABS: BASO % 0.5 % (0-2.0); EOS % 1.6 % (0-4.5); HEMATOCRIT 32.8 % (32.4-45.2); HEMOGLOBIN 11.2 GM/dL (10.7-15.3); MCH 29.6 pg (25.7-33.7); MCHC 34.2 g/dl (32.0-36.0); MEAN CELL VOLUME 86.5 fl (80-96); MEAN PLT VOLUME 8.4 fl (7.5-11.1); MONO % 5.9 % (3.8-10.2); PLATELET COUNT 260 10^3/uL (134-434); RBC 3.79 M/mm3 (3.60-5.2); RDW 13.5 % (11.6-15.6)
[2021-08-06] MEDS: DEXTROSE 5%-NORMAL SALINE 1,000 ML IV SCH (10:56)
[2021-08-06] MEDS: FAMOTIDINE 20 MG TABLET PO SCH (10:56)
[2021-08-06] MEDS: amLODIPine BESYLATE 5 MG TABLET (FP) PO SCH (10:56)
[2021-08-06] MEDS: ZINC SULFATE 220 MG CAPSULE (FP) PO SCH (10:56)
[2021-08-06 11:17] LABS: CALCIUM 8.9 mg/dL (8.5-10.1)
[2021-08-06 11:18] LABS: BLOOD UREA NITROGEN 20.9 mg/dL (7-18)
[2021-08-06 11:21] LABS: CREATININE 0.7 mg/dL (0.55-1.3)
[2021-08-06] MEDS: ATORVASTATIN CA 20 MG TABLET (FP) PO SCH (22:36)
[2021-08-06] MEDS: MELATONIN 1 MG TABLET PO SCH (22:36)
[2021-08-07] MEDS: INSULIN SLIDING SCALE (NOVOLOG) 1 VIAL SQ SCH ×4 (06:49→22:40)
[2021-08-07 09:38] LABS: ALBUMIN 2.7 g/dl (3.4-5.0); CALCIUM 8.6 mg/dL (8.5-10.1)
[2021-08-07 09:39] LABS: BLOOD UREA NITROGEN 23.1 mg/dL (7-18)
[2021-08-07 09:41] LABS: BILIRUBIN,TOTAL 0.3 mg/dL (0.2-1); TOT PROT 6.1 g/dl (6.4-8.2)
[2021-08-07 09:42] LABS: CREATININE 0.7 mg/dL (0.55-1.3)
[2021-08-07] MEDS: ZINC SULFATE 220 MG CAPSULE (FP) PO SCH (10:09)
[2021-08-07] MEDS: amLODIPine BESYLATE 5 MG TABLET (FP) PO SCH (10:09)
[2021-08-07] MEDS: FAMOTIDINE 20 MG TABLET PO SCH (10:09)
[2021-08-07] MEDS: MELATONIN 1 MG TABLET PO SCH (21:00)
[2021-08-07] MEDS: ATORVASTATIN CA 20 MG TABLET (FP) PO SCH (21:00)
[2021-08-08] MEDS: INSULIN SLIDING SCALE (NOVOLOG) 1 VIAL SQ SCH ×4 (06:02→21:45)
[2021-08-08] MEDS: FAMOTIDINE 20 MG TABLET PO SCH (11:04)
[2021-08-08] MEDS: ZINC SULFATE 220 MG CAPSULE (FP) PO SCH (11:04)
[2021-08-08] MEDS: amLODIPine BESYLATE 5 MG TABLET (FP) PO SCH (11:04)
[2021-08-08] MEDS: TAMSULOSIN HCL 0.4 MG CAP PO SCH (11:04)
[2021-08-08] MEDS ORDERED: INSULIN (NOVOLOG) ASPART 100 UNITS/ML 10ML VIAL ONE (20:48)
[2021-08-08] MEDS: ATORVASTATIN CA 20 MG TABLET (FP) PO SCH (21:16)
[2021-08-08] MEDS: MELATONIN 1 MG TABLET PO SCH (21:16)
[2021-08-09] MEDS: INSULIN SLIDING SCALE (NOVOLOG) 1 VIAL SQ SCH ×2 (06:12→14:27)
[2021-08-09 07:04] LABS: BASO % 0.5 % (0-2.0); EOS % 3.8 % (0-4.5); HEMATOCRIT 31.1 % (32.4-45.2); HEMOGLOBIN 10.9 GM/dL (10.7-15.3); LYMPH % 32.5 % (8-40); MCH 30.4 pg (25.7-33.7); MCHC 35.1 g/dl (32.0-36.0); MEAN CELL VOLUME 86.7 fl (80-96); MEAN PLT VOLUME 8.7 fl (7.5-11.1); MONO % 4.7 % (3.8-10.2); NEUT % 58.5 % (42.8-82.8); PLATELET COUNT 239 10^3/uL (134-434); RBC 3.58 M/mm3 (3.60-5.2); RDW 13.6 % (11.6-15.6)
[2021-08-09 07:31] LABS: CALCIUM 8.7 mg/dL (8.5-10.1)
[2021-08-09 07:32] LABS: ALBUMIN 2.6 g/dl (3.4-5.0); BLOOD UREA NITROGEN 21.2 mg/dL (7-18)
[2021-08-09 07:35] LABS: CREATININE 0.6 mg/dL (0.55-1.3)
[2021-08-09 07:36] LABS: BILIRUBIN,TOTAL 0.3 mg/dL (0.2-1)
[2021-08-09] MEDS: amLODIPine BESYLATE 5 MG TABLET (FP) PO SCH (09:51)
[2021-08-09] MEDS: TAMSULOSIN HCL 0.4 MG CAP PO SCH (09:51)
[2021-08-09] MEDS: ZINC SULFATE 220 MG CAPSULE (FP) PO SCH (09:51)
[2021-08-09] MEDS: FAMOTIDINE 20 MG TABLET PO SCH (09:51)
[2021-08-09 17:13] VITALS: BP 111/53; PULSE 73; TEMP 98
== END 2021-08-09 17:14 | disposition home or self-care (01) | DRG 921 ==
LOC: JER 15:10 → INTOOBSV 19:33 → JERBED 19:33 → UNDOADMOB 19:33 → JERBED 19:52 → J8W 23:30 → OBSVTOIN 08-06 12:41
PROVIDERS: ADMIT Internal Medicine; ATTEND Family Medicine
PROC: 0DH63UZ Insertion of Feeding Device into Stomach, Percutaneous Approach (ICD-10-PCS; principal; 2021-08-05)
PROC: BD12ZZZ Fluoroscopy of Stomach (ICD-10-PCS; 2021-08-05)
DX: T85.528A Displacement of other gastrointestinal prosthetic devices, implants and grafts, initial encounter (principal); E78.5 Hyperlipidemia, unspecified; E11.9 Type 2 diabetes mellitus without complications; I08.0 Rheumatic disorders of both mitral and aortic valves; I69.391 Dysphagia following cerebral infarction; R13.19 Other dysphagia; F03.90 Unspecified dementia, unspecified severity, without behavioral disturbance, psychotic disturbance, mood disturbance, and anxiety; J44.9 Chronic obstructive pulmonary disease, unspecified; K21.9 Gastro-esophageal reflux disease without esophagitis; R33.9 Retention of urine, unspecified; E86.0 Dehydration; I11.0 Hypertensive heart disease with heart failure; I50.9 Heart failure, unspecified; R31.29 Other microscopic hematuria; Y84.8 Other medical procedures as the cause of abnormal reaction of the patient, or of later complication, without mention of misadventure at the time of the procedure
CPT/HCPCS: 36415; 49440; 74230-TC-FY; 76775-TC; 76856-TC; 80048; 80053; 81003; 82436; 82962; 84133; 84300; 85025; 85610; 85730; 92611-GN; 99285-25; C9803; G0378; U0003; U0005